=== PATIENT | male | born 1980 | race Caucasian/White ===

== ENCOUNTER 2022-04-28 07:59 | Outpatient (CLI) | payer OTHER, SELFPAY ==
[2022-04-28 14:13] LABS: Cholesterol* 188 mg/dL (90-199); Triglycerides* 190 mg/dL (40-149)
[2022-04-28 14:14] LABS: HDL Cholesterol* 27 mg/dL (>=40); LDL Cholesterol Calculated 123 mg/dL (<100)
== END 2022-04-28 08:00 | disposition home or self-care (01) ==
LOC: LKVREF 08:00
PROVIDERS: Visit Provider Emergency Medicine
DX: Z13.6 Encounter for screening for cardiovascular disorders (principal)
CPT/HCPCS: 80061